=== PATIENT | female | born 1970 | race Two or more races ===

== ENCOUNTER → 2020-11-21 | Day surgery (SDC) | payer OTHER ==
[2020-11-19 17:06] VITALS: BMI 29.5
[~2020-11-21] MED LIST: BUPIVACAINE HCL/PF 0.5% (5 MG/ML) 30 ML VIAL IJ ONE; BUPIVACAINE HCL/PF 0.5% (5MG/ML) 10 ML VIAL ONE; CALCITRIOL 0.25 MCG CAPSULE (FP) PO ONE; CALCITRIOL 0.25 MCG CAPSULE (FP) PO SCH; CALCIUM (OYSTER SHELL) 500 MG TABLET (FP) PO ONE; CALCIUM CARBONATE 650 MG TABLET PO ONE; DEXAMETHASONE SOD PHOSPHATE 4 MG/1 ML VIAL ONE; HYDROmorphone HCl 2 MG/ML VIAL ONE; LACTATED RINGERS SOLUTION 1,000 ML IV SCH; LIDOCAINE 1%/EPI 1:100000 (20 ML MULTI DOSE VIAL) INF ONE; LIDOCAINE 1%/EPI 1:100000 (50 ML MULTI DOSE VIAL) ONE; LIDOCAINE HCL 2% JELLY (5 ML/TUBE) ONE; LIDOCAINE HCL/PF 2% SDV 5ML VIAL ONE; MICROFIBRILLAR COLLAGEN 1 GM EACH ONE; MIDAZOLAM HCL 2 MG/2 ML SINGLE DOSE VIAL ONE; ONDANSETRON 4 MG/2 ML VIAL IVPUSH PRN; ONDANSETRON 4 MG/2 ML VIAL ONE; PROMETHAZINE HCL 25 MG/1 ML VIAL IVPUSH PRN; PROMETHAZINE HCL 25 MG/1 ML VIAL ONE; PROPOFOL 20 ML ONE; SUCCINYLCHOLINE CHLORIDE 200 MG/10 ML SYRINGE ONE; ceFAZolin 2 GRAM PREMIX BAG IVPB ONE; ceFAZolin SODIUM 1 GM VIAL ONE; fentaNYL CITRATE 250 MCG/5 ML VIAL ONE; oxyCODONE HCL 5 MG TABLET PO PRN
[2020-11-21 20:36] VITALS: BP 159/82; PULSE 75; TEMP 97.5
== END | disposition home or self-care (01) ==
LOC: JASU-SURG 05:27
PROVIDERS: ATTEND Surgery
PROC: 0GBJ0ZZ Excision of Thyroid Gland Isthmus, Open Approach (ICD-10-PCS; 2020-11-21)
PROC: 07B20ZX Excision of Left Neck Lymphatic, Open Approach, Diagnostic (ICD-10-PCS; 2020-11-21)
PROC: 07B10ZX Excision of Right Neck Lymphatic, Open Approach, Diagnostic (ICD-10-PCS; 2020-11-21)
PROC: 0GTK0ZZ Resection of Thyroid Gland, Open Approach (ICD-10-PCS; principal; 2020-11-21 14:43)
DX: C73 Malignant neoplasm of thyroid gland (principal)
CPT/HCPCS: 88305-TC; 88307-TC; 88331-TC; 94760

== ENCOUNTER 2021-01-02 04:13 | Inpatient (IN) | payer OTHER ==
[2020-12-31 12:39] VITALS: BMI 30.5
[2021-01-02] MEDS ORDERED: MIDAZOLAM HCL 2 MG/2 ML SINGLE DOSE VIAL ONE ×3 (07:57→08:38)
[2021-01-02] MEDS ORDERED: fentaNYL CITRATE 250 MCG/5 ML VIAL ONE (07:57)
[2021-01-02] MEDS ORDERED: PROPOFOL 20 ML ONE ×3 (07:57)
[2021-01-02] MEDS ORDERED: ROCURONIUM BROMIDE 50 MG/5 ML SYRINGE ONE (08:28)
[2021-01-02] MEDS ORDERED: SUCCINYLCHOLINE CHLORIDE 200 MG/10 ML SYRINGE ONE (08:28)
[2021-01-02] MEDS ORDERED: BUPIVACAINE HCL/PF 0.5% (5MG/ML) 10 ML VIAL ONE (08:36)
[2021-01-02] MEDS ORDERED: BUPIVACAINE LIPOSOME/PF (EXPAREL) 266 MG/20 ML VIAL ONE (08:36)
[2021-01-02] MEDS ORDERED: CLINDAMYCIN PHOSPHATE 600 MG/4 ML VIAL ONE ×2 (08:37→09:29)
[2021-01-02] MEDS ORDERED: CLINDAMYCIN PHOSPHATE 900 MG/6 ML VIAL IVPB ONE (09:31)
[2021-01-02] MEDS ORDERED: ONDANSETRON 4 MG/2 ML VIAL IVPUSH PRN (10:49)
[2021-01-02] MEDS ORDERED: oxyCODONE HCL 5 MG TABLET PO PRN ×2 (10:50)
[2021-01-02] MEDS ORDERED: ACETAMINOPHEN 1000 MG/100 ML VIAL (NON FORMULARY) IVPB ONE (10:50)
[2021-01-02] MEDS ORDERED: NEOSTIGMINE METHYLSULFATE 0.5 MG/ML - 10 ML MDV ONE (10:54)
[2021-01-02] MEDS ORDERED: CLINDAMYCIN IVPB 300 MG in DEXTROSE 5%-WATER - 50 ML IVPB ONE (12:04)
[2021-01-02] MEDS ORDERED: DEXAMETHASONE SOD PHOSPHATE 4 MG/1 ML VIAL IVPUSH PRN (12:49)
[2021-01-02] MEDS ORDERED: HYDROmorphone *PCA* 10MG/50ML DISP.SYRIN PCA SCH (13:00)
[2021-01-02] MEDS: LACTATED RINGERS SOLUTION 1,000 ML IV SCH (15:30)
[2021-01-02] MEDS: CALCITRIOL 0.25 MCG CAPSULE (FP) PO SCH (18:46)
[2021-01-02] MEDS: ACETAMINOPHEN 325 MG TABLET (FP) PO SCH ×2 (18:46→23:05)
[2021-01-02] MEDS ORDERED: PT OWN MED DRAWER 7, Y5N ONE ×2 (20:49→22:20)
[2021-01-02] MEDS: CLINDAMYCIN 300 MG PREMIX IVPB 300 MG/50 ML BAG IVPB SCH (21:57)
[2021-01-02] MEDS: CALCIUM (OYSTER SHELL) 500 MG TABLET (FP) PO SCH (21:57)
[2021-01-02] MEDS ORDERED: oxyCODONE HCL 10 MG SUSTAINED ACTING TABLET PO SCH (22:00)
[2021-01-02] MEDS: CALCIUM CARBONATE 650 MG TABLET PO SCH (22:00)
[2021-01-03] MEDS: ACETAMINOPHEN 325 MG TABLET (FP) PO SCH ×3 (05:43→12:32)
[2021-01-03] MEDS: LACTATED RINGERS SOLUTION 1,000 ML IV SCH (05:45)
[2021-01-03] MEDS: CLINDAMYCIN 300 MG PREMIX IVPB 300 MG/50 ML BAG IVPB SCH ×2 (06:42→13:02)
[2021-01-03] MEDS: LEVOTHYROXINE NA 125 MCG TABLET (FP) PO SCH (06:44)
[2021-01-03] MEDS ORDERED: PCA PUMP NR ONE (07:47)
[2021-01-03] MEDS ORDERED: IBUPROFEN 800 MG/8 ML IJ IVPB ONE (07:51)
[2021-01-03] MEDS ORDERED: oxyCODONE HCL 5 MG TABLET PO PRN ×2 (07:56)
[2021-01-03] MEDS ORDERED: PT OWN MED DRAWER 7, Y5N ONE ×2 (08:37→13:01)
[2021-01-03] MEDS: CALCITRIOL 0.25 MCG CAPSULE (FP) PO SCH ×2 (08:40→09:02)
[2021-01-03] MEDS: CALCIUM CARBONATE 650 MG TABLET PO SCH ×2 (08:43→09:01)
[2021-01-03] MEDS: DOCUSATE SODIUM 100 MG CAPSULE (FP) PO SCH ×2 (09:01→20:59)
[2021-01-03] MEDS: ENOXAPARIN NA (PORCINE) 40 MG/0.4 ML DISP.SYRIN SQ SCH (09:02)
[2021-01-03 09:27] LABS: BASO % 0.1 % (0-2.0); EOS % 0.3 % (0-4.5); HEMATOCRIT 29.9 % (32.4-45.2); LYMPH % 12.1 % (8-40); MCH 28.2 pg (25.7-33.7); MCHC 33.6 g/dl (32.0-36.0); MEAN CELL VOLUME 83.8 fl (80-96); MEAN PLT VOLUME 10.6 fl (7.5-11.1); MONO % 6.1 % (3.8-10.2); NEUT % 81.4 % (42.8-82.8); PLATELET COUNT 192 10^3/uL (134-434); RBC 3.57 M/mm3 (3.60-5.2); RDW 15.4 % (11.6-15.6); WHITE BLOOD COUNT 9.7 K/mm3 (4.0-10.0)
[2021-01-03 09:40] LABS: BLOOD UREA NITROGEN 6.3 mg/dL (7-18)
[2021-01-03 09:43] LABS: CREATININE 0.6 mg/dL (0.55-1.3)
[2021-01-03] MEDS: CALCIUM (OYSTER SHELL) 500 MG TABLET (FP) PO SCH ×2 (15:23→20:59)
[2021-01-03] MEDS: IBUPROFEN 400 MG TABLET (FP) PO SCH (15:46)
[2021-01-03] MEDS: SIMETHICONE 80 MG TAB.CHEW (FP) PO PRN ×2 (15:46→20:59)
[2021-01-03] MEDS: ACETAMINOPHEN 1000 MG/100 ML VIAL (NON FORMULARY) IVPB SCH (20:59)
[2021-01-04] MEDS: IBUPROFEN 400 MG TABLET (FP) PO SCH ×2 (00:36→08:54)
[2021-01-04] MEDS: ACETAMINOPHEN 1000 MG/100 ML VIAL (NON FORMULARY) IVPB SCH ×2 (05:22→13:41)
[2021-01-04] MEDS: LEVOTHYROXINE NA 125 MCG TABLET (FP) PO SCH (06:31)
[2021-01-04 08:51] VITALS: TEMP 98.6
[2021-01-04] MEDS ORDERED: PT OWN MED DRAWER 7, Y5N ONE (10:13)
[2021-01-04] MEDS: ENOXAPARIN NA (PORCINE) 40 MG/0.4 ML DISP.SYRIN SQ SCH (10:16)
[2021-01-04] MEDS: DOCUSATE SODIUM 100 MG CAPSULE (FP) PO SCH (10:16)
[2021-01-04] MEDS: CALCITRIOL 0.25 MCG CAPSULE (FP) PO SCH (10:17)
[2021-01-04] MEDS: CALCIUM (OYSTER SHELL) 500 MG TABLET (FP) PO SCH (10:17)
[2021-01-04 14:25] VITALS: BP 132/76; PULSE 95
== END 2021-01-04 16:00 | disposition home or self-care (01) | DRG 743 ==
LOC: JASUSAT 04:13 → J6S 15:57 → JASUSAT 01-03 15:32 → J6S 01-03 15:33
PROVIDERS: ADMIT Obstetrics & Gynecology; ATTEND Obstetrics & Gynecology
PROC: 8E0W4CZ Robotic Assisted Procedure of Trunk Region, Percutaneous Endoscopic Approach (ICD-10-PCS; 2021-01-02)
PROC: 0UT94ZZ Resection of Uterus, Percutaneous Endoscopic Approach (ICD-10-PCS; principal; 2021-01-02 09:00)
PROC: 0UT74ZZ Resection of Bilateral Fallopian Tubes, Percutaneous Endoscopic Approach (ICD-10-PCS; 2021-01-02 09:00)
PROC: 0UB04ZZ Excision of Right Ovary, Percutaneous Endoscopic Approach (ICD-10-PCS; 2021-01-02 09:00)
DX: D25.9 Leiomyoma of uterus, unspecified (principal); N83.201 Unspecified ovarian cyst, right side
CPT/HCPCS: 36415; 80048; 81025; 84703; 85025; 86850; 86900; 86901; 88302-TC; 88307-TC; 94010; 94760; C9803; J0131; U0003; U0005